=== PATIENT | male | born 1995 | race Caucasian/White ===

== ENCOUNTER 2017-11-18 20:35 | Emergency (ER) | payer OTHER ==
[~2017-11-18] VITALS: Ht 175.3 cm; Wt 96.0 kg
[2017-11-18] MEDS ORDERED: NO HOME MEDS (21:42)
[2017-11-18] MEDS ORDERED: DIPH25CA83 PO (22:03)
[2017-11-18] MEDS ORDERED: ALBU6.7H INH (22:03)
[2017-11-18 22:24] VITALS: BP 117/82
== END 2017-11-18 22:27 | disposition home or self-care (01) ==
LOC: ER 20:37
DX: J45.909 Unspecified asthma, uncomplicated (principal)
CPT/HCPCS: 93005; 99283